=== PATIENT | male | born 1950 | race Caucasian/White ===

== ENCOUNTER 2021-04-29 06:47 | Inpatient (IN) ==
--- NOTE | 2021-04-16 15:03 | PAT Medication Instructions ---
Medication Instructions Date of Service April 16, 2021 Home Medications aspirin 81 mg tablet,delayed release (Adult Low Dose Aspirin) 81 mg PO QAM hydrochlorothiazide 25 mg tablet 25 mg PO QAM multivitamin 1 tab PO QAM omega-3 fatty acids 1,000 mg capsule (Fish Oil Concentrate) 2,000 mg PO QAM omeprazole 20 mg capsule,delayed release 20 mg PO QAM simvastatin 40 mg tablet 40 mg PO HS tamsulosin 0.4 mg capsule 0.4 mg PO HS ASK your prescriber and surgeon aspirin 81 mg tablet,delayed release (Adult Low Dose Aspirin) 81 mg PO QAM STOP taking 2 weeks before surgery omega-3 fatty acids 1,000 mg capsule (Fish Oil Concentrate) 2,000 mg PO QAM DO NOT take the morning of surgery hydrochlorothiazide 25 mg tablet 25 mg PO QAM multivitamin 1 tab PO QAM Take morning of surgery With a small sip of water, OTHERWISE NOTHING TO EAT OR DRINK AFTER MIDNIGHT: omeprazole 20 mg capsule,delayed release 20 mg PO QAM Take evening before surgery simvastatin 40 mg tablet 40 mg PO HS tamsulosin 0.4 mg capsule 0.4 mg PO HS Other Notes If you have any questions please call us at [phone] or [phone] or [phone] or [phone]
--- NOTE | 2021-04-17 12:12 | Anesthesiology Consultation ---
Date of Service April 17, 2021 Assessment & Plan (1) Encounter for pre-operative examination: Chart Review Chart Review: Pending: Refer to Additional Notes / Consult section (pending cardio clearance and preop Covid testing results ) and Patient seen in Pre Admission Testing -Due to inferior infarct on EKG- will set up for cardio clearance. Per PAT appt on 04/17/21, patient denies any recent travel or large group act ivities. No known Covid positive exposures or Covid related symptoms. No known Covid infection in the past 90 days. Pt is vaccinated for Covid. Preop Covid testing scheduled 04/25/21 = will await results. Educated on importance of self quarantining, social distancing and wearing mask in public for the patient one week prior to surgery and after Covid testing done Consults Requested cardiac (abnormal preop EKG ) Teaching & Discussion Pre-Anesthesia Teaching/Discussion Notes: Instructed NPO after midnight before surgery,except medications with 15 cc of water. Medication instructions provided according to the PAT guidelines. History Surgery Operation Date: 04/29/21 07:30 Proposed Procedures p Left Robotic Laparoscopic Assisted Partial Nephrectomy - Guillermo Carr MD Height/Weight Height: 5 ft 7.5 in Weight: 87 kg Allergies Allergy/AdvReac Type Severity Reaction Status Date / Time No Known Allergies Allergy Mild Verified 04/16/21 13:43 Medications Home Medications Medication Instructions Recorded Confirmed Last Taken aspirin 81 mg tablet,delayed 81 mg PO QAM 04/12/18 04/16/21 Unknown release (Adult Low Dose Aspirin) hydrochlorothiazide 25 mg tablet 25 mg PO QAM 04/12/18 04/16/21 Unknown multivitamin 1 tab PO QAM 04/12/18 04/16/21 Unknown omega-3 fatty acids 1,000 mg 2,000 mg PO QAM 04/12/18 04/16/21 Unknown capsule (Fish Oil Concentrate) omeprazole 20 mg capsule,delayed 20 mg PO QAM 04/12/18 04/16/21 Unknown release simvastatin 40 mg tablet 40 mg PO HS 04/12/18 04/16/21 Unknown tamsulosin 0.4 mg capsule 0.4 mg PO HS 04/12/18 04/16/21 Unknown Past Medical History Medical History Arthritis Degenerative disc disease GERD (gastroesophageal reflux disease) Well controlled and disease HTN (hypertension) Hyperlipidemia Lumbar postlaminectomy syndrome Renal mass, left FOUND ON CT SCAN Exercise / Class Metabolic Activity II 4-5 Yardwork/Stairs/Walk up hill (one flight of stairs- no chest pain or SOB ) Past Family History Family History Other No family history of adverse response to anesthesia Past Surgical History Surgical History History of colonoscopy History of esophagogastroduodenoscopy (EGD) History of lumbar surgery Dr. Waldrop 2000 [facility], L4 laminectomy History of shoulder surgery RT History of tonsillectomy History of tooth extraction Past Anesthesia History No Hx of Anesthesia Complications and No Family Hx of Anesthesia Complications History of PONV No Hx of PONV and No Hx of Motion Sickness Social History Smoking Status: Never smoker tobacco type: smokeless tobacco Do You Dip or Chew Tobacco: No (QUIT 7-8 YEARS AGO) Hx Alcohol Use: Yes Alcohol type: beer alcohol intake frequency: a few times a month Hx Substance Use: No Review of Systems Hx of snoring- no witnessed apnea- no hx sleep study Patient denies chest pain, shortness of breath, dyspnea on exertion, cough, wheezing, palpitations. No hx of seizures, stroke, NC. No hx of blood clots or blood transfusions Physical Exam Vital Signs VITALS BP 149/89 (patient checks BP daily at home- usually in 120's/80s) P 71 TEMP 98.0 SP02 97% RESP 16 Constitutional no acute distress ENMT Mouth: no TMJ clicking Thyromental Distance: > or= 3.5 Finger Breadths (4.0) Mallampati Class: I Top partial denture Missing bottom molars Neck neck extension not limited Respiratory normal respiratory effort; no respiratory distress Auscultation: lungs clear to auscultation bilaterally; no wheezes Cardiovascular Rate/Rhythm: regular rate and regular rhythm Heart Sounds: no murmur Vessels: no carotid bruit Musculoskeletal Spine: no pain with cervical ROM Extremities: extremities normal to inspection Psychiatric Orientation: alert Lab Results Anesthesia Preop Results Results Anesthesia Widget: WBC 6.37 K/uL (4.8-10.8) 04/17/21 Hgb 15.2 g/dL (14.0-18.0) 04/17/21 Hct 44.3 % (42-52) 04/17/21 Plt 212 K/uL (130-400) 04/17/21 Na 141 mmol/L (136-145) 04/17/21 K 4.4 mmol/L (3.5-5.1) 04/17/21 Cl 104 mmol/L (98-107) 04/17/21 CO2 31 mmol/L (21-32) 04/17/21 BUN 14 mg/dl (6-23) 04/17/21 Creat 0.97 mg/dl (0.6-1.4) 04/17/21 Glucose Level 93 mg/dl (70-99(Fasting)) 04/17/21 Urine Color Yellow 04/17/21 Urine Appearance Clear (Clear) 04/17/21 Urine pH 5.0 (4.5-7.5) 04/17/21 Urine Specific [place] 1.019 (1.000-1.030) 04/17/21 Urine Protein Negative (Negative) 04/17/21 Urine Glucose (UA) Negative (Negative) 04/17/21 Urine Ketones Negative (Negative) 04/17/21 Urine Blood Negative (Negative) 04/17/21 Urine Nitrite Negative (Negative) 04/17/21 Urine Bilirubin Negative (Negative) 04/17/21 Urine Urobilinogen Negative (Negative) 04/17/21 Urine Leukocyte Esterase Negative (Negative) 04/17/21 Blood Type A Negative 04/17/21 Antibody Screen NEGATIVE 04/17/21 Testing Electrocardiogram Date: 04/17/21 Findings: + NSR @ (63bpm ) Inferior infarct, age undetermined Chest X-Ray Date: 04/17/21 Findings: + NAD
[~2021-04-29 06:47] MED LIST: LR 15ML/HR IV SCH; ceFAZolin 2000MG 2,000 MG/15 ML SYR IV SCH
[2021-04-29] MEDS ORDERED: HYDROmorphone INJ 1 MG/ML SYRINGE IV PRN (08:09)
[2021-04-29] MEDS ORDERED: fentaNYL citrate 100 MCG/2 ML VIAL IV PRN (08:09)
[2021-04-29] MEDS ORDERED: ePHEDrine sulfate 50 MG/ML AMP IV PRN (08:09)
[2021-04-29] MEDS ORDERED: ONDANSETRON INJ 2 MG/ML 2 ML VIAL IV PRN ×2 (08:09→13:52)
[2021-04-29] MEDS ORDERED: ATROPINE SULFATE 0.1 MG/ML 10ML SYR IV PRN (08:09)
[2021-04-29] MEDS ORDERED: BUPIVACAINE 0.5 % 5 MG/1 ML MPF 30ML VIAL ONE (08:25)
[2021-04-29] MEDS ORDERED: MIDAZOLAM HCL 1 MG/ML 2ML VIAL ONE ×2 (08:25→10:22)
[2021-04-29] MEDS ORDERED: fentaNYL citrate 100 MCG/2 ML VIAL ONE ×2 (08:25→10:22)
--- NOTE | 2021-04-29 08:36 | History & Physical Bridge Note ---
Date of Service April 29, 2021 History & Physical Bridge Note I have examined the patient, reviewed the History & Physical and in the interval since the performance of the History & Physical I have noted the following changes of clinical significance: no changes noted
[2021-04-29] MEDS ORDERED: MANNITOL 25% 12.5 GM/50 ML VIAL IV ONE (08:40)
[2021-04-29] MEDS ORDERED: HYDROmorphone INJ 2 MG/ML SYR/VIAL ONE (09:40)
[2021-04-29] MEDS ORDERED: PROPOFOL IV EMULSION 10 MG/ML 20 ML VIAL IV ONE (09:50)
[2021-04-29] MEDS ORDERED: ePHEDrine sulfate 50 MG/ML SYR ONE (09:50)
[2021-04-29] MEDS ORDERED: LIDOCAINE 2% 2 ML VIAL/AMP(20MG/ML) INFIL ONE (09:50)
[2021-04-29] MEDS ORDERED: GLYCOPYRROLATE 0.2 MG/ML VIAL ONE (09:50)
[2021-04-29] MEDS ORDERED: LARYING-O-JET KIT (LTA) ONE (09:50)
[2021-04-29] MEDS ORDERED: DEXAMETHASONE SOD INJ 4 MG/ML VIAL ONE (09:50)
[2021-04-29] MEDS ORDERED: ONDANSETRON INJ 2 MG/ML 2 ML VIAL ONE (09:50)
[2021-04-29] MEDS ORDERED: PHENYLEPHRINE 100MCG/ML 5ML SYR ONE (09:50)
[2021-04-29] MEDS ORDERED: ROCURONIUM BROMIDE 10 MG/ML 5 ML VIAL IV ONE ×3 (09:50→11:44)
[2021-04-29] MEDS ORDERED: NEOSTIGMINE METHYLSULFATE 1 MG/ML 10ML VIAL ONE (09:50)
[2021-04-29] MEDS ORDERED: FLOSEAL HEMOSTATIC MATRIX 10ML TOP ONE (10:05)
[2021-04-29] MEDS ORDERED: TISSEEL FIBRIN SEALANT 10ML TOP ONE (10:05)
[2021-04-29] MEDS ORDERED: SURGICEL ABSORB HEMOSTAT 2IN X 14IN TOP ONE (11:55)
[2021-04-29] MEDS ORDERED: SUGAMMADEX SODIUM 200 MG/2 ML VIAL IV ONE (12:29)
--- NOTE | 2021-04-29 13:07 | Operative Report ---
PG Post Operative Report Pre & Post Diagnosis Operation Date: 04/29/21 08:50 Pre-Op Diagnosis: Left Renal Mass Post-Op Diagnosis: Left Renal Mass I identified the patient and participated in the time-out.: Yes Procedure Operation Date: 04/29/21 08:50 Actual Procedures p Left Robotic Laparoscopic Assisted Partial Nephrectomy(Left) - Guillermo Carr MD Surgeon Oleg Carr MD Air Valve Repairer 1. Dr. Daniele Valenzuela, 2. Perla Hunter Estimated Blood Loss 50 Findings Consistent with Post-Op Diagnosis Specimens 1. Left renal mass 2. Fat over the left tumor Description of Procedure Patient was placed in a [id number] left side up lateral decubitus position and padded and braced in standard fashion. He received Ancef as preoperative antibiotics. After sterile prep and drape a Veress needle was passed in the left upper quadrant and the abdomen insufflated to 15 mmHg. After insufflation I marked tentative port locations beginning with a port just under the costal margin and just lateral to the rectus border. A second port was placed approximately 6 cm inferior followed by an additional 1 6 cm inferior and one fourth 1 600 cm inferior to that. I used a 0 degree lens and a Visiport to place the first robotic trocar and port second below the costal margin. Inspection revealed a healthy-appearing abdominal wall with some adhesions of the colon anterior and laterally but not interfering with our other ports. All the ports were subsequently placed as well were 2-12 mm ports along the midline, one just superior to the umbilicus and one just inferior. We then docked the robot. To begin the robotic portion of the case I first mobilized the adhesions from the colon to the left lateral abdominal wall. I then incised the white line of Toldt and reflected the colon medially. I was able to follow Gerota's fascia down medially towards the gonadal vein. After identifying the gonadal vein I dissected towards the kidney. Of note, there was a venous branch going from the lower pole of the kidney to the gonadal vein. Just inferior to this I was able to create a window to the psoas muscle and utilized the fourth arm of the robot to elevate the kidney and stretch the hilar structures. I continue to follow the gonadal vessel towards the renal vein. I identified the main renal vein as well as a prominent branch that was just inferior to the main vein. There was a large lumbar vein protruding from the junction of the gonadal and IVC. We also identified a large artery coursing just inferior to the renal vein and just superior to the smaller branch. All the structures were skeletonized circumferentially. I then turned my attention to identification of the mass. I began to incise Ge rota's fascia. Of note, he has relatively sticky fat and was a relatively meticulous dissection to reach the capsule of the kidney and expose normal parenchyma. I was able to identify normal parenchyma on the medial inferior superior and lateral aspects of the tumor. The tumor itself was visible. I utilized laparoscopic ultrasound several points throughout this dissection to confirm that I was on the right path. After carefully dissecting up to the border of the tumor in all directions I marked tentative incision sites to the capsule with approximately 3 to 4 mm margin on all aspects. I repeated ultrasound evaluation to determine depth and ensure that my marked locations were adequate. I resected some of the fat over the tumor as there was a relatively significant amount of fat and removing a portion of this helped to ease the dissection and visualization. Before beginning resection of the mass I preplaced 3 V-Loc sutures into the abdomen. We then returned our attention to the hilar structures and placed the hilum on stretch by elevating the lower pole of the kidney. We administered 12.5 g of mannitol and after infusion we began by placing a short bulldog clamp across the artery and venous branch simultaneously followed by a solitary short bulldog clamp across the main vein and a third short bulldog clamp across the lower pole venous branch that was extending to the gonadal. And then turned my attention to the mass itself and began to excise it. I used cautery to control the capsule followed by cold dissection through the remainder of the renal parenchyma. There was one area on the medial aspect where I thought it was encroaching upon the tumor and incised into it, I was able to readjust and direct my dissection to ensure that we did not continue to cut into the tumor. I believe this correction was sufficient. All other aspects of the dissection failed to reveal any tumor. After circumferentially freeing the tumor it was placed adjacent to the kidney and I exchanged my cutting instruments for needle drivers. Renorraphy was conducted utilizing a sliding clip technique with all sutures beginning on the posterior side of the defect and being sewn towards the anterior aspect of the defect. I initially placed 3 sutures, one at cephalad aspect of the dissection, 1 in the mid portion and a third suture at the lower portion of the dissection. I then reversed all the sutures and sutured from anterior to posterior after placing a Weck clips and compressing the kidney. At that time I thought that the defect was adequately closed. We turned our attention back to the hilar structures and removed first the gonadal vein clamped followed by the main vein clamp. We then flash the arterial clamp immediately noted there is a small amount of bleeding from the superiormost aspect of our defect. I reclamped the artery and returned with the suture previously placed at the upper aspect of the dissection and passed 1 additional suture across this area which subsequently completed the closure. We then removed the arterial clamp and saw no active bleeding. Warm ischemia time was 18 minutes. At that time we collected the specimen into an Endo Catch bag. All sutures were removed. We placed FloSeal followed by a small sheet of Surgicel and ultimately Tisseel across the defect. Gerota's fat was reconstructed utilizing a V-Loc suture. A MARY drain was guided into the left lateral aspect of the abdomen. All ports were removed and the abdomen cleared of CO2. I then extracted the specimen through the second lowest robotic port. I closed the fascia with a running PDS suture. A 0 Vicryl suture was utilized in the 2 midline 12 mm ports. All skin incisions were infiltrated with half percent Marcaine. Skin was closed with 4-0 Monocryl and the drain sutured in place with a 3-0 nylon. Dermabond was placed over all incisions and the case was concluded. He was extubated and taken to the PACU in stable condition. There were no complications. Dr. Valenzuela assisted throughout the resection and reconstruction and Perla Hunter was present and scrubbed from incision to closure. I attest to the content of the Intraoperative Record and any orders documented therein. Any exceptions are noted below.
[2021-04-29 13:09] LABS: Basophils # (auto) 0.01 K/uL (0-0.2); Basophils % (auto) 0.1 %; Eosinophils # (auto) 0.01 K/uL (0-0.5); Eosinophils % (auto) 0.1 %; Hematocrit (blood only) 43.3 % (42-52); Hemoglobin 14.6 g/dL (14.0-18.0); Immature Granulocytes # (auto) 0.03 K/uL (0.00-0.02); Immature Granulocytes % (auto) 0.2 %; Lymphocytes # (auto) 1.03 K/uL (1.2-3.4); Lymphocytes % (auto) 7.5 %; Mean Corpuscular Hemoglobin 32.7 pg (25-34); Mean Corpuscular Volume 96.9 fL (80-100); Mean Platelet Volume 11.4 fL (7.4-10.4); Monocytes # (auto) 0.14 K/uL (0.11-0.59); Neutrophils # (auto) 12.52 K/uL (1.4-6.5); Neutrophils % (auto) 91.1 %; Platelet Count 200 K/uL (130-400); RDW Coefficient of Variation 12.4 % (11.5-14.5); RDW Standard Deviation 43.7 fL (36.4-46.3); Red Blood Count 4.47 M/uL (4.7-6.1); White Blood Count 13.74 K/uL (4.8-10.8)
--- NOTE | 2021-04-29 13:14 | Anesthesiology Progress Note ---
Date of Service April 29, 2021 Anesthesia Post Procedure Vital Signs Vital Signs: Temp Pulse Pulse Resp BP BP Pulse Ox 04/29/21 13:05 80 12 154/91 H 93 04/29/21 12:55 79 13 140/95 99 04/29/21 12:45 84 12 140/79 96 04/29/21 12:39 36.1 C L 88 12 146/93 H 100 04/29/21 07:14 36.6 C 89 18 157/109 H 99 Pain Intensity Lower Back: Pain Intensity: 3 Transfer of Care Handoff Completed per policy Notes Mental Status: alert / awake / arousable Patient Amnestic to Procedure: Yes Nausea / Vomiting: adequately controlled Pain: adequately controlled Airway Patency, RR, SpO2: stable & adequate BP & HR: stable & adequate Hydration State: stable & adequate Anesthetic Complications: no major complications apparent and Pt Satisfied with anesthetic care
[2021-04-29 13:32] LABS: Mean Corpuscular Hgb Conc 33.7 g/dL (32-36)
[2021-04-29 13:43] LABS: BUN Creatinine Ratio 11.4 (10-20); Calcium 8.6 mg/dl (8.5-10.1); Creatinine Clr Calc Pharmacy 64.4 ml/min; Est GFR (African American) 81.2 ml/min; Est GFR (Non-African American) 70.1 ml/min; Potassium 4.5 mmol/L (3.5-5.1)
[2021-04-29] MEDS ORDERED: MoRPHine SULFATE 4 MG/ML 1 ML CARP\\VIAL IV PRN (13:52)
[2021-04-29] MEDS ORDERED: ACETAMINOPHEN 325 MG TAB PO PRN (13:52)
[2021-04-29] MEDS ORDERED: MoRPHine SULFATE 2 MG/ML CARP IV PRN (13:52)
[2021-04-29] MEDS ORDERED: oxyCODONE HCL IR 5 MG TAB (IMMEDIATE RELEASE) PO PRN (13:52)
[2021-04-29] MEDS: ceFAZolin 2000MG 2,000 MG/15 ML SYR IV SCH (16:47)
[2021-04-29] MEDS: LACTATED RINGER'S 1,000 ML IV SCH (16:47)
[2021-04-29] MEDS: TAMSULOSIN HCL 0.4 MG CAP PO SCH (20:45)
[2021-04-29] MEDS: SIMVASTATIN 40 MG TAB PO SCH (20:45)
[2021-04-29] MEDS: oxyCODONE HCL IR 5 MG TAB (IMMEDIATE RELEASE) PO PRN (20:46)
[2021-04-30] MEDS: LACTATED RINGER'S 1,000 ML IV SCH ×2 (01:58→11:44)
[2021-04-30] MEDS: ceFAZolin 2000MG 2,000 MG/15 ML SYR IV SCH (01:58)
[2021-04-30 06:48] LABS: Basophils # (auto) 0.01 K/uL (0-0.2); Basophils % (auto) 0.1 %; Hematocrit (blood only) 38.2 % (42-52); Hemoglobin 12.8 g/dL (14.0-18.0); Immature Granulocytes # (auto) 0.03 K/uL (0.00-0.02); Immature Granulocytes % (auto) 0.3 %; Lymphocytes # (auto) 1.22 K/uL (1.2-3.4); Lymphocytes % (auto) 10.5 %; Mean Corpuscular Hemoglobin 32.2 pg (25-34); Mean Corpuscular Hgb Conc 33.5 g/dL (32-36); Mean Corpuscular Volume 96.2 fL (80-100); Mean Platelet Volume 11.7 fL (7.4-10.4); Monocytes # (auto) 1.02 K/uL (0.11-0.59); Monocytes % (auto) 8.8 %; Neutrophils # (auto) 9.35 K/uL (1.4-6.5); Neutrophils % (auto) 80.3 %; Platelet Count 210 K/uL (130-400); RDW Coefficient of Variation 12.6 % (11.5-14.5); RDW Standard Deviation 44.2 fL (36.4-46.3); Red Blood Count 3.97 M/uL (4.7-6.1); White Blood Count 11.63 K/uL (4.8-10.8)
[2021-04-30 07:57] LABS: BUN Creatinine Ratio 12.6 (10-20); Calcium 8.2 mg/dl (8.5-10.1); Creatinine Clr Calc Pharmacy 53.3 ml/min; Est GFR (African American) 64.5 ml/min; Est GFR (Non-African American) 55.7 ml/min; Potassium 3.9 mmol/L (3.5-5.1)
[2021-04-30] MEDS: hydroCHLOROthiazide 25 MG TAB PO SCH (09:27)
[2021-04-30] MEDS: PANTOprazole 40 MG TAB PO SCH (09:27)
--- NOTE | 2021-04-30 10:08 | Urology Progress Note ---
Date of Service April 30, 2021 Assessment & Plan (1) Left renal mass: Plan: POD#1 s/p left partial nephrectomy -recovery on pace - barnes out this am - ambulate -gradual diet advance - hopeful for d/c home tomorrow if he continues to progress well Admission and Anticipated Discharge Date Admission Date: April 29, 2021 Subjective no major issues overnight some hematuria - as expected minimal pain minimal nausea tolerated clear liquids this AM Cr stable, hgb as expected Physical Exam Physical Exam: abd soft, incisions appropriate MARY serosang - low outpt Barnes with dark/old blood Results & Data ([facility]) Vital Signs (Past 12 Hours) Vital Signs Temp Pulse Resp BP Pulse Ox 04/30/21 07:25 36.5 C 66 18 137/75 94 04/30/21 03:53 36.8 C 84 16 105/63 92 04/29/21 22:39 36.9 C 98 H 18 137/75 93 PG Care Time/CCT Total # of Minutes Spent Total Time Spent with Patient: Total time spent is greater than 50% in coordination of care (as documented) at patient's floor/unit and/or counseling patient: Coding Level of Care Code 63859 Subseq Hosp Care Lvl 2 Diagnoses Left renal mass N28.89
[2021-04-30] MEDS: SIMETHICONE 80 MG CHEW PO PRN (21:28)
[2021-04-30] MEDS: SIMVASTATIN 40 MG TAB PO SCH (21:28)
[2021-04-30] MEDS: TAMSULOSIN HCL 0.4 MG CAP PO SCH (21:28)
[2021-05-01] MEDS: oxyCODONE HCL IR 5 MG TAB (IMMEDIATE RELEASE) PO PRN ×2 (02:59→10:00)
[2021-05-01] MEDS: SIMETHICONE 80 MG CHEW PO PRN (03:15)
[2021-05-01 06:26] LABS: Basophils # (auto) 0.01 K/uL (0-0.2); Basophils % (auto) 0.1 %; Eosinophils # (auto) 0.02 K/uL (0-0.5); Eosinophils % (auto) 0.2 %; Hematocrit (blood only) 38.6 % (42-52); Immature Granulocytes # (auto) 0.02 K/uL (0.00-0.02); Immature Granulocytes % (auto) 0.2 %; Lymphocytes # (auto) 1.17 K/uL (1.2-3.4); Lymphocytes % (auto) 10.9 %; Mean Corpuscular Hemoglobin 32.3 pg (25-34); Mean Corpuscular Hgb Conc 33.7 g/dL (32-36); Mean Platelet Volume 11.4 fL (7.4-10.4); Monocytes # (auto) 1.06 K/uL (0.11-0.59); Monocytes % (auto) 9.9 %; Neutrophils # (auto) 8.43 K/uL (1.4-6.5); Neutrophils % (auto) 78.7 %; Platelet Count 175 K/uL (130-400); RDW Coefficient of Variation 12.5 % (11.5-14.5); RDW Standard Deviation 44.2 fL (36.4-46.3); Red Blood Count 4.02 M/uL (4.7-6.1); White Blood Count 10.71 K/uL (4.8-10.8)
[2021-05-01 06:57] LABS: BUN Creatinine Ratio 12.5 (10-20); Calcium 8.3 mg/dl (8.5-10.1); Creatinine Clr Calc Pharmacy 60.4 ml/min; Est GFR (African American) 75.1 ml/min; Est GFR (Non-African American) 64.8 ml/min; Potassium 3.9 mmol/L (3.5-5.1)
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
[2021-05-01] MEDS: hydroCHLOROthiazide 25 MG TAB PO SCH (10:01)
[2021-05-01] MEDS: PANTOprazole 40 MG TAB PO SCH (10:01)
[2021-05-01] MEDS: SIMVASTATIN 40 MG TAB PO SCH (20:32)
[2021-05-01] MEDS: TAMSULOSIN HCL 0.4 MG CAP PO SCH (20:32)
[2021-05-02] MEDS: SIMETHICONE 80 MG CHEW PO PRN (04:51)
[2021-05-02 06:13] LABS: Basophils # (auto) 0.02 K/uL (0-0.2); Basophils % (auto) 0.2 %; Eosinophils # (auto) 0.07 K/uL (0-0.5); Eosinophils % (auto) 0.7 %; Hemoglobin 13.8 g/dL (14.0-18.0); Immature Granulocytes # (auto) 0.01 K/uL (0.00-0.02); Immature Granulocytes % (auto) 0.1 %; Lymphocytes # (auto) 1.34 K/uL (1.2-3.4); Lymphocytes % (auto) 13.8 %; Mean Corpuscular Hemoglobin 32.8 pg (25-34); Mean Corpuscular Hgb Conc 34.5 g/dL (32-36); Mean Platelet Volume 11.5 fL (7.4-10.4); Monocytes # (auto) 1.02 K/uL (0.11-0.59); Monocytes % (auto) 10.5 %; Neutrophils # (auto) 7.26 K/uL (1.4-6.5); Neutrophils % (auto) 74.7 %; Platelet Count 171 K/uL (130-400); RDW Coefficient of Variation 12.4 % (11.5-14.5); Red Blood Count 4.21 M/uL (4.7-6.1); White Blood Count 9.72 K/uL (4.8-10.8)
[2021-05-02 06:40] LABS: BUN Creatinine Ratio 13.2 (10-20); Calcium 8.8 mg/dl (8.5-10.1); Creatinine Clr Calc Pharmacy 63.8 ml/min; Est GFR (African American) 80.3 ml/min; Est GFR (Non-African American) 69.3 ml/min; Potassium 3.6 mmol/L (3.5-5.1)
[2021-05-02] MEDS: hydroCHLOROthiazide 25 MG TAB PO SCH (08:18)
[2021-05-02] MEDS: PANTOprazole 40 MG TAB PO SCH (08:18)
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
--- NOTE | 2021-05-02 08:49 | Discharge Summary ---
Date of Service May 02, 2021 Admission HPI Per Admitting Provider 71 yo male with left renal mass who was admitted for planned robotic left partial nephrectomy Admission Exam Per Admitting Provider General: Alert and oriented, no acute distress HEENT: Normocephalic, mucous membranes moist Cardiovascular: Regular rate Pulmonary: Nonlabored respirations Abdomen: Nondistended Extremities: Moves all 4 spontaneously Neuro: No gross deficits Skin: Warm, dry, no rashes noted Principal Diagnosis Left renal mass Discharge Exam General: Alert and oriented, no acute distress HEENT: Normocephalic, mucous membranes moist Cardiovascular: Regular rate Pulmonary: Nonlabored respirations Abdomen: Incisions clean dry intact, nontender, soft, nondistended Extremities: Moves all 4 spontaneously Neuro: No gross deficits Skin: Warm, dry, no rashes note Discharge Data Allergies Allergy/AdvReac Type Severity Reaction Status Date / Time No Known Allergies Allergy Mild Verified 04/29/21 07:11 Procedures Performed Operation Date: 04/29/21 08:50 Actual Procedures p Left Robotic Laparoscopic Assisted Partial Nephrectomy(Left) - Guillermo Carr MD Hospital Course (1) Left renal mass: Patient underwent above-mentioned procedure. He did well postoperatively. Vitals and labs were stable. His Acevedo catheter and MARY drains were removed. He voided spontaneously. He tolerated a regular diet with return of bowel function. He ambulated without issue. Discharged on POD3. Total Time Total Time Spent Total Time Spent (In Minutes): 10 minutes Discharge Plan Discharge Items Patient Disposition: Home - Self-Care Reason For Visit: Left Renal Mass Discharge Diagnosis: Left Renal Mass Activity: Per Instructions section Lifting: No more than 10 pounds Bathing Comment: OK to shower. No tub baths or soaks. Sexual Activity: Wait until after follow-up appointment Exercise/Sports: Wait until after follow-up appointment Driving/Machine Use: Do not drive if taking prescription pain medication. Non-emergency contact: Surgeon and Urologist Call non-emergency contact if: you have any medication questions, your pain is not controlled, your pain is worsening and you have a fever Follow-up/Referrals: Guillermo Carr MD [Physician] - 05/14/21 3:45 pm Chevy Mars DO [Primary Care Provider] - Diet: Regular Addtl Attending Provider Instructions: Please take all medications as prescribed and keep all follow-ups as scheduled. Please call our office at [phone] with any questions, concerns or need to reschedule appointments for any reason. We are happy to assist you. You can resume your Aspirin Wednesday or Wednesday if your urine remains clear to light pink. Please contact the urology office with any questions or concerns. Recovering at home: We recommend having someone with you for the first few days after surgery to help care for you. It is okay to shower tomorrow. Please avoid swimming, bathing or using hot tub until incisions are well healed. Avoid driving until you are not requiring pain medication any further. Walk at least a few times a day. Increase your distance, as you feel able. Stairs in your home are okay. Please avoid strenuous or sexual activity until your follow-up. We recommend using stool softener (i.e. Colace) to prevent constipation and straining, especially the first two weeks post operatively. Call [facility] [place] Urology at [phone] if you experience: Chest pain or trouble breathing (call 911 or go to the hospital). Fever of 101F or higher Symptoms of infection at incision site, including redness or swelling, warmth, or bad-smelling drainage If you have catheter, and you notice: o Bloody urine or drainage that is dark red or has large clots (Please remember a small amount of blood is normal) o No drainage from the catheter for more than 6 hours o The catheter comes out of your bladder Pain that is not controlled with medicines Pending Studies at Discharge: Yes (Pathology) Stand-Alone Forms: [facility], Opioid Pain Management, Smoking Cessation Medications and DC Order Prescriptions: New oxycodone-acetaminophen [Percocet] 5-325 mg tablet 1 tab PO Q8H PRN (Reason: pain) Qty: 7 RF: 0 docusate sodium [Colace] 100 mg capsule 100 mg PO BID Qty: 30 RF: 0 Continued omega-3 fatty acids [Fish Oil Concentrate] 1,000 mg capsule 2,000 mg PO QAM RF: 0 aspirin [Adult Low Dose Aspirin] 81 mg tablet,delayed release (DR/EC) 81 mg PO QAM RF: 0 hydrochlorothiazide 25 mg tablet 25 mg PO QAM RF: 0 multivitamin tablet 1 tab PO QAM RF: 0 omeprazole 20 mg capsule,delayed release(DR/EC) 20 mg PO QAM RF: 0 simvastatin 40 mg tablet 40 mg PO HS RF: 0 tamsulosin 0.4 mg capsule 0.4 mg PO HS RF: 0 Discharge Orders: Discharge Order (Routine); Ordered 05/02/21 Ordered By: Bc Lance Admission Data Admit Date/Time: 04/29/21 12:43 Attending Provider: Guillermo Carr Admit Provider: Guillermo Carr Primary Care Provider: Chevy Mars Other Providers: [facility] Other Interventions: Discharge Summary Assessment (RN) Last Done: 05/02/21 09:01 Coding Level of Care Code Established Pt D/C DAY MANAGEMENT <30 MINS Patient Type Established Diagnoses Left renal mass N28.89
== END 2021-05-02 12:10 | disposition home or self-care (01) | DRG 661 ==
LOC: ASU 06:47 → 3E 12:43